=== PATIENT | male | born 1950 | race Caucasian/White ===

== ENCOUNTER 2018-11-28 12:31 | Emergency (ER) | payer OTHER ==
[~2018-11-28] VITALS: Ht 167.6 cm; Wt 66.7 kg
[2018-11-28] MEDS ORDERED: LIPITOR20 MG (12:53)
== END 2018-11-28 18:45 | disposition home or self-care (01) ==
LOC: ER 12:31
DX: S42.022A Displaced fracture of shaft of left clavicle, initial encounter for closed fracture (principal); V19.88XA Pedal cyclist (driver) (passenger) injured in other specified transport accidents, initial encounter; Y93.55 Activity, bike riding; Y92.482 Bike path as the place of occurrence of the external cause; Y99.8 Other external cause status

== ENCOUNTER 2019-03-15 06:20 | Day surgery (SDC) | payer OTHER ==
[~2019-03-15 06:20] MED LIST: LIPITOR20 MG PO; MULTI-VITAMIN1 EACH PO; VITAMIN D22000 UNIT PO
[2019-03-15] MEDS ORDERED: PERCOCET 5-3251 EACH PO (10:44)
[2019-03-15] MEDS ORDERED: CEFADROXIL500 MG PO (10:44)
== END 2019-03-15 13:15 | disposition home or self-care (01) ==
LOC: CIR.AMB 06:20
DX: S42.022A Displaced fracture of shaft of left clavicle, initial encounter for closed fracture (principal); T84.028A Dislocation of other internal joint prosthesis, initial encounter